=== PATIENT | male | born 1985 | race Caucasian/White ===

== ENCOUNTER 2019-04-30 16:13 | Emergency (ER) | payer BC, OTHER ==
[2019-04-30 16:36] VITALS: BP 108/80
[2019-04-30] MEDS ORDERED: Ibuprofen TAB* 600 MG PO ONE (16:39)
[2019-04-30 16:46] LABS: Influenza B Molecular POSITIVE (Negative)
--- NOTE | 2019-04-30 17:10 | UC ---
Throat Pain/Nasal Naeem HPI - HPI Summary HPI Summary: Patient presents to urgent care reporting 24 hours of fever and body aches and fatigue. Patient was some sinus congestion postnasal drip. Patient with a cough is not productive. Patient is not taking any [id number] medications. Patient did not get the flu shot this year. Patient does not have any chronic medical conditions. Patient does not smoke cigarettes or bleed but he does smoke marijuana. Patient medication as undergone the EMR reviewed this visit. - History of Current Complaint Chief Complaint: UCGeneralIllness Stated Complaint: HEADACHE/BODY ACHES/SINUS Time Seen by Provider: 04/30/19 16:56 Hx Obtained From: Patient Pain Intensity: 2 - Allergies/Home Medications Allergies/Adverse Reactions: Allergies Allergy/AdvReac Type Severity Reaction Status Date / Time Penicillins Allergy Unknown Verified 04/30/19 16:36 Reaction Details PMH/Surg Hx/FS Hx/Imm Hx Previously Healthy: Yes - Surgical History Surgical History: Yes Surgery Procedure, Year, and Place: hand surgery. T&A - Family History Known Family History: Positive: Non-Contributory - Social History Occupation: Employed Full-time Lives: With Family Alcohol Use: Occasionally Substance Use Type: Marijuana Smoking Status (MU): Never Smoked Tobacco Review of Systems All Other Systems Reviewed And Are Negative: Yes Constitutional: Positive: Fever ENT: Positive: Nasal Discharge, Sinus Congestion, Sinus Pain/Tenderness Respiratory: Positive: Cough Cardiovascular: Positive: Negative Gastrointestinal: Positive: Negative Genitourinary: Positive: Negative Physical Exam - Summary Physical Exam Summary: Vital Signs Reviewed: Yes A+Ox3, no distress, tired appearing Eyes: Conjunctiva Clear, STEVO. EOM intact and full ENT: Hearing grossly normal TM x 2 clear, turbiantes inflammed and boggy, + PND , mmoist, uvula midline, no exudate, no erythema Neck: Positive: Supple Respiratory: Positive: No respiratory distress, No accessory muscle use + CTA throughout no w/r Cardiovascular: RRR, borderline tachy, nl s1, s2 no m/r CBT <2 sec abd soft + BS nt/nd no guarding, no distension Musculoskeletal Exam: RAJAN x 4 without difficulty Strength Intact, ROM Intact Neurological: Positive: Alert, + sensation throughout Psychological: Positive: Normal Response To examiner Skin: Positive: no rash, no ecchymosis Triage Information Reviewed: Yes Vital Signs: Initial Vital Signs Temp 102.7 F 04/30/19 16:32 Pulse 103 04/30/19 16:32 Resp 16 04/30/19 16:32 BP 108/80 04/30/19 16:32 Pulse Ox 99 04/30/19 16:32 Throat Pain/Nasal Course/Dx - Course Course Of Treatment: Patient presents to urgent care reporting 24 hours of fevers, congestion, sore throat and body aches. Patient has a nonproductive cough. On exam patient noted to have an elevated temperature and heart rate. Patient has not taken any medications. Patient appears fatigued with sinus congestion and postnasal drip. Patient given Motrin. Patient's influenza was positive. Discussed with patient pros and cons of Tamiflu. We'll start careful. Secretion precaution. Work note. Return precautions. Patient comfortable the plan. - Differential Dx/Diagnosis Provider Diagnosis: Influenza B Discharge ED - Sign-Out/Discharge Documenting (check all that apply): Patient Departure All imaging exams completed and their final reports reviewed: No Studies - Discharge Plan Condition: Stable Disposition: HOME Prescriptions: Oseltamivir CAP* [Tamiflu CAP*] 75 mg PO BID #10 cap Patient Education Materials: Influenza (ED) Forms: *Gen. Provider Communication, *Work Release Referrals: Calderon Benítez MD [Primary Care Provider] - Additional Instructions: - Stay well hydrated. Drink plenty of non-alcoholic, non-caffinated beverages. - Alternate ibuprofen (Advil, Motrin) and Tylenol every 3 hours for pain or fever. Take with food. Do NOT take for more than 4-5 days. - These infections are spread by secretions - do NOT share eating or drinking utensils - clean items you share with other people such as cell phones, computer mouse, TV remote, computer tablets,etc. Once you start to feel better, change your toothbrush and your pillowcase. Take Tamiflu 2 times a day as prescribed - get plenty of restful sleep - humidify the air in the room where you sleep - boil water, run a hot steam shower, vaporizer, cups of water by heat register - okay to take over the counter decongestant and cough medication - contact your doctor or return with questions or concerns - Billing Disposition and Condition Condition: STABLE Disposition: Home
== END 2019-04-30 17:28 | disposition home or self-care (01) ==
LOC: UCCORT 16:13
DX: J10.1 Influenza due to other identified influenza virus with other respiratory manifestations (principal); Z88.0 Allergy status to penicillin
CPT/HCPCS: 99202; A9270-GY; G0463